=== PATIENT | male | born 2000 | race Caucasian/White ===

== ENCOUNTER 2023-08-29 19:45 | Inpatient (IN) | payer MEDICARE, MEDICAID, SELFPAY ==
[2023-08-29] VITALS (11 sets, daily range): BP systolic 117–145; BP diastolic 53–89; PULSE 100–137; RESP 18–54; TEMP 37.3; O2SAT 94–100
--- NOTE | 2023-08-29 20:00 | DI.US.S_ITS ---
PROCEDURE: US PERIPH VENOUS LOW EXTREM LT INDICATIONS: pain, swelling, redness, no injury TECHNIQUE: Real-time imaging, as well as color and pulse Doppler interrogation, were performed of the lower extremity deep veins from the inguinal ligament to the popliteal fossa, with documentation of the visualized calf veins. COMPARISON: None. FINDINGS: The common femoral, femoral, popliteal, veins are normally compressible, and free of intraluminal thrombus. Color and pulse Doppler demonstrate normal phasic intraluminal flow. There is normal augmentation response to distal compression maneuver. Calf veins not evaluated due to patient body habitus/motion. IMPRESSION: No findings of lower extremity deep venous thrombosis. Calf veins not well visualized/evaluated. Dictated by: Diego Hawthorne M.D. on 08/29/2023 at 21:24 Approved by: Diego Hawthorne M.D. on 08/29/2023 at 21:25
--- NOTE | 2023-08-29 20:00 | DI.RAD.S_ITS ---
PROCEDURE: XR CHEST 1V INDICATIONS: Shortness of breath TECHNIQUE: One view of the chest was acquired. COMPARISON: None. FINDINGS: Surgical changes and devices: None. Lungs and pleura: Low lung volumes. Minimal nonspecific bibasilar opacities. No pleural effusion or pneumothorax. Mediastinum: Cardiac silhouette is at the upper limit of normal in size. Bones and chest wall: No suspicious bony lesions. Overlying soft tissues appear unremarkable. IMPRESSION: Low lung volumes with minimal nonspecific bibasilar opacities possible hypoventilatory atelectasis aspiration or pneumonia difficult to exclude. Dictated by: Diego Hawthorne M.D. on 08/29/2023 at 21:21 Approved by: Diego Hawthorne M.D. on 08/29/2023 at 21:23
--- NOTE | 2023-08-29 20:00 | DI.RAD.S_ITS ---
PROCEDURE: XR ANKLE LT MIN 3V INDICATIONS: pain, swelling, redness, no obvious injury TECHNIQUE: 3 views of the ankle were acquired. COMPARISON: None. FINDINGS: Bones: No fractures or dislocations. Ankle mortise is normally aligned. No suspicious bony lesions. Soft tissues: No tibiotalar joint effusion. IMPRESSION: No acute osseous abnormality. If symptoms persist, follow-up radiographs and/or CT or MRI may be helpful for further evaluation. Dictated by: Diego Hawthorne M.D. on 08/29/2023 at 21:20 Approved by: Diego Hawthorne M.D. on 08/29/2023 at 21:21
--- NOTE | 2023-08-29 20:01 | ED_ITS ---
HPI - General Adult General Chief complaint: Upper Respiratory Symptoms Stated complaint: cough/drugs Time Seen by Provider: 08/29/23 19:49 Source: patient Mode of arrival: Wheelchair History of Present Illness HPI narrative: 23-year-old male daily smoker, daily use smoked methamphetamines presents with shortness of breath. He denies any fever or chills. He denies any chest pain. He is not dizzy nor weak or lightheaded. He denies any IV drug abuse. Denies nausea, vomiting or diarrhea. He states he has significant pain in his left foot and ankle but denies any known injury. He denies any history of blood clot or any chronic medical history. Related Data Allergies Allergy/AdvReac Type Severity Reaction Status Date / Time No Known Drug Allergies Allergy Verified 08/29/23 21:25 Review of Systems Review of Systems Narrative: GENERAL: See HPI HEENT: Denies sinus pain, ear pain, sore throat, difficulty swallowing, dizziness. RESPIRATORY: See HPI CARDIOVASCULAR: Denies chest pain, palpitations, orthopnea, edema, GASTROINTESTINAL: Denies nausea, vomiting, abdominal pain, diarrhea, constipation, melena. : Denies dysuria, frequency, incontinence, hematuria, urinary retention. MUSCULOSKELETAL: See HPI SKIN: See HPI NEUROLOGIC: Denies weakness, headache, numbness, change in speech, confusion, seizures, incoordination. PSYCHIATRIC: No concerning psychosocial issues. 12 point review of systems is negative except for those stated above Patient History Social History Smoking Status: Current every day smoker Smoking Status: Current every day smoker Substance Use Type: methamphetamine Exam Narrative Exam Narrative: GENERAL: [23] year old patient appears stated age. Well-developed patient, in moderate distress. Obviously in pain, unable to weightbear on left foot HEAD: Atraumatic. Normocephalic. EYES: Pupils equal round and reactive. Extraocular motions intact. No scleral icterus. No injection or drainage. ENT: Nose without bleeding, purulent drainage. Throat without erythema, tonsillar hypertrophy or exudate. Airway patent. NECK: Trachea midline. Non tender CARDIOVASCULAR: Tachycardic but regular rhythm without murmurs, gallops, or rubs. RESPIRATORY: Increased respiratory rate and effort, end expiratory wheeze throughout GASTROINTESTINAL: Abdomen soft, non-tender, nondistended. EXTREMITIES: Left foot and ankle with noted swelling, pain and tenderness, mainly along the medial malleolus, some calf swelling is noted, no redness, no pain on medial thigh. BACK: Nontender without deformity or crepitance. No flank tenderness. NEURO: AOx3. SKIN: No rash or erythema of visible areas Initial Vital Signs Initial Vital Signs: Vital Signs Temperature 99.1 F 08/29/23 19:49 Pulse Rate 137 H 08/29/23 19:49 Respiratory Rate 32 H 08/29/23 19:49 Blood Pressure 145/70 H 08/29/23 19:49 Pulse Oximetry 100 08/29/23 19:49 Oxygen Delivery Method Room Air 08/29/23 19:49 Course Orders Ordered: ED Orders 08/29/23 20:00 Chest [XR chest 1V] Stat US periph venous low extrem lt Stat XR ankle LT min 3V Stat C-Reactive Protein Quant Stat COVID19 -Nasal RAPID Stat Complete Blood Count AUTO DIFF Stat Comprehensive Metabolic Panel Stat D Dimer Stat ESR [Erythrocyte Sedimentation Rate] Stat Lactate (Lactic Acid) Stat Lipase Stat Magnesium Stat NT-proBNP (BNP-Adult 18+) Stat Prothrombin Time INR Stat Troponin & CK Cardiac Panel Stat EKG-12 Lead Stat 08/29/23 20:01 RT Consult Eval and Treat NOW 08/29/23 21:19 CT angio chest PE protocol Stat 08/29/23 22:35 Ictotest Urine Stat Urine Culture Stat Urine Drug Screen, Rapid Stat Urine Microscopic Stat Sodium Chloride (Normal Saline 0.9%) 2,259 mls @ 753 mls/hr 30 ml/kg infuse over 3 hr (2259 ml) IV NOW ONE Stop: 08/30/23 01:53 Vancomycin HCl/Dextrose (Vancomycin) 2,000 mg in 400 mls @ 200 mls/hr IV NOW ONE Stop: 08/30/23 00:54 Last Admin: 08/30/23 00:13 Dose: 200 mls/hr Documented By: MARNIE Discontinued Medications Albuterol/Ipratropium (Albuterol/Ipratropium 3 Ml Ampul) 3 ml INH NOW ONE Stop: 08/29/23 20:06 Last Admin: 08/29/23 20:06 Dose: 3 ml Documented By: MADELINE Sodium Chloride (Normal Saline 0.9%) 1,000 mls @ 1,000 mls/hr IV BOLUS ONE Stop: 08/29/23 23:38 Last Admin: 08/29/23 22:44 Dose: 1,000 mls/hr Documented By: MARNIE Ceftriaxone Sodium 2,000 mg/ (Sodium Chloride) 100 mls @ 200 mls/hr IV NOW ONE Stop: 08/29/23 22:55 Last Infusion: 08/29/23 23:37 Dose: Infused Documented By: Admin: 08/29/23 23:01 Dose: 200 mls/hr Documented By: MARNIE Azithromycin 500 mg/ Dextrose 250 mls @ 250 mls/hr IV NOW ONE Stop: 08/29/23 22:55 Last Admin: 08/29/23 23:31 Dose: 250 mls/hr Documented By: MARNIE Vital Signs Vital signs: Vital Signs - 8 hr 08/29/23 19:49 08/29/23 20:06 08/29/23 20:38 Temperature 99.1 F Pulse Rate 137 H 122 H 124 H Respiratory Rate 32 H 32 H Blood Pressure 145/70 H Pulse Oximetry 100 99 95 Oxygen Delivery Method Room Air Room Air Oxygen Flow Rate 0 Fraction of Inspired Oxygen 21 08/29/23 21:00 08/29/23 21:00 08/29/23 21:39 Temperature Pulse Rate 120 H 121 H Respiratory Rate 30 H 39 H Blood Pressure 144/66 H Pulse Oximetry 97 Oxygen Delivery Method Oxygen Flow Rate Fraction of Inspired Oxygen 08/29/23 21:41 08/29/23 21:41 08/29/23 22:00 Temperature Pulse Rate 116 H 120 H Respiratory Rate 54 H 40 H Blood Pressure 133/59 L Pulse Oximetry 99 Oxygen Delivery Method Oxygen Flow Rate Fraction of Inspired Oxygen 08/29/23 22:01 08/29/23 22:01 08/29/23 22:48 Temperature Pulse Rate 121 H 100 H Respiratory Rate 43 H Blood Pressure 117/65 Pulse Oximetry 94 Oxygen Delivery Method Oxygen Flow Rate Fraction of Inspired Oxygen 08/29/23 23:01 08/29/23 23:30 08/30/23 00:13 Temperature Pulse Rate 122 H Respiratory Rate 18 18 Blood Pressure 139/89 131/53 L Pulse Oximetry 98 Oxygen Delivery Method Oxygen Flow Rate Fraction of Inspired Oxygen Medical Decision Making Lab Data 08/29/23 20:00 08/29/23 20:00 Labs: Lab Results 10/17/23 10/17/23 Range/Units 20:00 22:35 WBC 11.9 H (4.5-11.0) X10^3/uL RBC 4.27 L (4.5-5.9) X10^6/uL Hgb 12.5 L (13.5-17.5) g/dL Hct 36.2 L (41-53) % MCV 84.7 (80-100) fL MCH 29.4 (26-34) PG MCHC 34.7 (30-36) % RDW 13.8 (11.6-14.8) % Plt Count 257 (150-400) X10^3/uL Neut % (Auto) 79.1 H (50-75) % Lymph % (Auto) 10.3 L (25-40) % [place] % (Auto) 10.2 (3-14) % Eos % (Auto) 0.1 L (2-4) % Baso % (Auto) 0.3 (0-2) % Neut # (Auto) 9400 H (2237-1083) /uL Lymph # (Auto) 1200 (8622-3850) /uL [place] # (Auto) 1200 H (0-900) /uL Eos # (Auto) 0 (0-450) /uL Baso # (Auto) 0 (0-100) /uL ESR 55 H (0-15) MM/HR PT 18.1 H (10.1-12.7) SECONDS INR 1.6 H (0.9-1.3) D-Dimer 1496 H (<500) ng/ml Sodium 136 L (137-145) mmol/L Potassium 3.4 (3.4-5.1) mmol/L Chloride 102 (98-107) mmol/L Carbon Dioxide 24 (22-32) mmol/L BUN 15 (9-20) mg/dL Creatinine 1.24 (0.66-1.25) mg/dL Estimated GFR > 60 (>60) mL/min BUN/Creatinine Ratio 12.1 (6-22) Glucose 107 H (70-100) mg/dL Lactate 1.9 (0.7-2.1) mmol/L Calcium 9.2 (8.4-10.2) mg/dL Magnesium 1.7 (1.6-2.3) mg/dL Total Bilirubin 0.9 (0.2-1.3) mg/dL AST 40 (17-59) IU/L ALT 40 (<50) IU/L Alkaline Phosphatase 82 (38-126) U/L Total Creatine Kinase 382 H (55-170) U/L Troponin I < 0.012 (0.01-0.034) ng/mL C-Reactive Protein 16.7 H (<1.0) mg/dL NT-Pro-B Natriuret Pep < 20 (<125) pg/mL Total Protein 7.6 (6.3-8.2) g/dL Albumin 4.2 (3.5-5.0) g/dL Globulin 3.4 (1.7-4.1) g/dL Albumin/Globulin Ratio 1.2 (1.0-2.8) Lipase 50 (23-300) U/L Ur Bilirubin Confirm Negative (Negative) Urine RBC None seen (0-5/HPF) Urine WBC 1-5/hpf (0-5/HPF) Ur Squamous Epith Cells 1-5 /hpf (0-5/HPF) Urine Bacteria None seen (None) Ur Culture Indicated? Specimen cultured U Opiates 300ng/mL cut Negative (Negative) Ur Oxycodone Screen Negative (Negative) Urine Methadone Screen Negative (Negative) Ur Barbiturates Screen Negative (Negative) U Tricyclic Antidepress Negative (Negative) Ur Phencyclidine Scrn Negative (Negative) Ur Amphetamines Screen Positive H (Negative) U Methamphetamines Scrn Positive H (Negative) Ur MDMA Scrn (Ecstasy) Negative (Negative) U Benzodiazepines Scrn Negative (Negative) Urine Cocaine Screen Negative (Negative) U Marijuana (THC) Screen Negative (Negative) SARS-CoV-2 (PCR) Negative (Negative) Urine Dip Bedside Urine Glucose Negative Bedside Urine Bilirubin + 1 Bedside Urine Ketone +/- 5 Urine Specific [place] 1.015 Bedside Urine Occult Blood - Negative Bedside Urine pH 6 Bedside Urine Protein + 30 Bedside Urine Urobilinogen +/- 1mg Bedside Urine Nitrite - Negative Bedside Urine Leukocytes +/- 15 Esterase Point of care testing: Urine Dip Bedside Urine Glucose Negative Bedside Urine Bilirubin + 1 Bedside Urine Ketone +/- 5 Urine Specific [place] 1.015 Bedside Urine Occult Blood - Negative Bedside Urine pH 6 Bedside Urine Protein + 30 Bedside Urine Urobilinogen +/- 1mg Bedside Urine Nitrite - Negative Bedside Urine Leukocytes +/- 15 Esterase ECG Data Interpretation: [2001] EKG is sinus tach with rate 123, regular rhythm, no other ectopy, no ST elevations or depressions and free of any signs of ischemia or ectopy. No ST segmental elevation or depression. No T wave inversions MDM Narrative Medical decision making narrative: [23 year old patient presents with shortness of breath, cough and left ankle pain Multiple etiologies for patient's symptoms considered including, but not limited to: [Pneumonia versus pneumonitis versus pulmonary embolism versus cellulitis versus DVT versus other] Prior Charts reviewed in our EMR Primary Historian: patient Labs reviewed and interpreted by myself: Slight leukocytosis and relative left shift, no significant anemia, D-dimer 1496, lactate 1.9, primary electrolytes, renal function within normal Imaging reviewed: Chest x-ray with bibasilar opacities, left ankle x-ray without acute osseous abnormality, left lower extremity peripheral vascular ultrasound without evidence of DVT, CT angiogram shows no large central pulmonary embolism but does demonstrate bilateral pulmonary infiltrates 23-year-old male with morbid obesity and history of smoking and daily methamphetamine use presents tachycardic and short of breath, physical exam and imaging convincing for bilateral pneumonia and left lower extremity infectious process. Patient requires hospitalization for ongoing treatment and stabilization of his condition Dr. Carter happy to accept on his service Discharge Plan Departure Patient Disposition: Admitted As Inpatient Clinical Impression: Bilateral pneumonia, Sepsis, Cellulitis of left leg
[2023-08-29] MEDS: ALBUTEROL/IPRATROPIUM 3 ML AMPUL INH (20:06)
[2023-08-29 20:37] LABS: COVID19 -Nasal RAPID Negative (Negative)
[2023-08-29 20:40] LABS: Add Manual Diff / Slide Review NO; Basophils Absolute Auto 0 /uL (0-100); Basophils Percent Auto 0.3 % (0-2); Eosinophils Absolute Auto 0 /uL (0-450); Eosinophils Percent Auto 0.1 % (2-4); Hematocrit 36.2 % (41-53); Hemoglobin 12.5 g/dL (13.5-17.5); Lymphocytes Absolute Auto 1200 /uL (1100-4500); Lymphocytes Percent Auto 10.3 % (25-40); Mean Corpuscular HGB Conc 34.7 % (30-36); Mean Corpuscular Hemoglobin 29.4 PG (26-34); Mean Corpuscular Volume 84.7 fL (80-100); Monocytes Absolute Auto 1200 /uL (0-900); Monocytes Percent Auto 10.2 % (3-14); Neutrophils Absolute Auto 9400 /uL (1500-7000); Neutrophils Percent Auto 79.1 % (50-75); Platelet Count 257 X10^3/uL (150-400); Red Blood Cell Count 4.27 X10^6/uL (4.5-5.9); Red Cell Distribution Width 13.8 % (11.6-14.8); White Blood Cell Count 11.9 X10^3/uL (4.5-11.0)
[2023-08-29 20:41] LABS: Lactate (Lactic Acid) 1.9 mmol/L (0.7-2.1)
[2023-08-29 20:45] LABS: Alanine Aminotransferase 40 IU/L (<50); Albumin 4.2 g/dL (3.5-5.0); Albumin Globulin Ratio 1.2 (1.0-2.8); Alkaline Phosphatase 82 U/L (38-126); Aspartate Aminotransferase 40 IU/L (17-59); BUN Creatinine Ratio 12.1 (6-22); Bilirubin Total 0.9 mg/dL (0.2-1.3); Blood Urea Nitrogen 15 mg/dL (9-20); Calcium 9.2 mg/dL (8.4-10.2); Carbon Dioxide 24 mmol/L (22-32); Chloride 102 mmol/L (98-107); Creatine Kinase 382 U/L (55-170); Estimated Glomerular Filt Rate > 60 mL/min (>60); Globulin 3.4 g/dL (1.7-4.1); Glucose 107 mg/dL (70-100); HEMOLYSIS < 15 (0-50); Lipase 50 U/L (23-300); Magnesium 1.7 mg/dL (1.6-2.3); Potassium 3.4 mmol/L (3.4-5.1); Sodium 136 mmol/L (137-145); Total Protein 7.6 g/dL (6.3-8.2)
[2023-08-29 20:54] LABS: NT-proBNP (BNP-Adult 18+) < 20 pg/mL (<125); Troponin I < 0.012 ng/mL (0.01-0.034)
[2023-08-29 21:00] LABS: C-Reactive Protein Quant 16.7 mg/dL (<1.0)
[2023-08-29 21:11] LABS: INR 1.6 (0.9-1.3); Prothrombin Time 18.1 SECONDS (10.1-12.7)
[2023-08-29 21:13] LABS: D Dimer 1496 ng/ml (<500)
--- NOTE | 2023-08-29 21:19 | DI.CT.S_ITS ---
PROCEDURE: CT ANGIO CHEST PE PROTOCOL INDICATIONS: Shortness of breath, tachycardia, critical Dimer TECHNIQUE: After the administration of intravenous contrast, 2 mm thick sections acquired from the pulmonary apices to the posterior costophrenic angles. 3-dimensional maximum intensity projection (MIP) coronal and sagittal reformats were then acquired through the thorax. For radiation dose reduction, the following was used: automated exposure control, adjustment of mA and/or kV according to patient size. COMPARISON: None. FINDINGS: Image quality: Suboptimal due to motion and patient body habitus. Pulmonary arteries: No large or central pulmonary embolism identified. The main pulmonary artery is enlarged measuring 3.4 cm. Lungs and pleura: No pleural effusion or pneumothorax. Patchy ground-glass/consolidative opacities present in both lungs most pronounced at the lung bases Mediastinum: No pericardial effusion. Thoracic aorta is normal in caliber and enhancement. Esophagus is normal in caliber Bones and chest wall: No suspicious bony lesions. Ribs and thoracic spine appear intact throughout. No supraclavicular adenopathy. Left axillary adenopathy and prominent right axillary lymph nodes Abdomen: Visualized upper abdominal solid organs appear normal in the early arterial phase of enhancement. IMPRESSION: Suboptimal evaluation due to technical factors as above. No large or central pulmonary embolism identified. Patchy ground-glass/consolidative opacities present in both lungs, likely infectious/inflammatory correlation for pneumonia may be helpful Enlargement of the main pulmonary artery, a finding which can be seen in the setting of pulmonary hypertension. Nonspecific left axillary adenopathy and prominent right axillary lymph nodes present clinical correlation recommended Dictated by: Diego Hawthorne M.D. on 08/29/2023 at 22:34 Approved by: Diego Hawthorne M.D. on 08/29/2023 at 22:40
[2023-08-29 21:26] LABS: Erythrocyte Sedimentation Rate 55 MM/HR (0-15)
[2023-08-29] MEDS: SODIUM CHLORIDE 0.9% 1,000 ML 1000 ML IV (22:44)
[2023-08-29 22:50] LABS: Ictotest Urine Negative (Negative)
[2023-08-29 22:51] LABS: Bacteria Urine None Seen; Culture Indicated Urine Specimen Cultured; RBC Urine None Seen (0-5/HPF); Squamous Epithelial Cell Urine 1-5 /HPF (0-5/HPF); WBC Urine 1-5/HPF (0-5/HPF)
[2023-08-29 22:52] LABS: UR Morphine/Opiate cutoff 300 Negative (Negative); Ur Creatinine Normal (Normal); Ur Specific Gravity Normal (Normal); Urine Amphetamines Positive (Negative); Urine Barbiturates Negative (Negative); Urine Benzodiazepines Negative (Negative); Urine Cocaine Negative (Negative); Urine MDMA Negative (Negative); Urine Methadone Negative (Negative); Urine Methamphetamines Positive (Negative); Urine Oxycodone Negative (Negative); Urine Phencyclidine Negative (Negative); Urine Tetrahydrocannabinol Negative (Negative); Urine Tricyclic Antidepressant Negative (Negative); Urine pH Normal (Normal)
[2023-08-29] MEDS: cefTRIAXone 2,000 MG in SODIUM CHLORIDE 0.9% 100 ML 200 MG IV (23:01)
[2023-08-29] MEDS: AZITHROMYCIN 500 MG in DEXTROSE 5% IN WATER 250 ML 250 MG IV (23:31)
--- NOTE | 2023-08-29 23:42 | PC.NURSE ---
pt very restless, continues moving about in the bed, pulling the bp cuff off and pulse ox, pt also will not keep his arm straight for the IVs to infuse, pt constantly bending his arm and has been reminded several times to keep his arm straight so he can received the medication
[2023-08-30] VITALS (15 sets, daily range): BP systolic 105–137; BP diastolic 52–76; PULSE 92–122; RESP 18–24; TEMP 36.1–38.1; O2SAT 95–100; BMI 49.1
[2023-08-30] MEDS: VANCOMYCIN 2,000 MG/400 ML PIGGYBACK 200 MG IV (00:13)
--- NOTE | 2023-08-30 00:27 | PC.NURSE ---
PT was told multiple times to straighten his arm to allow Iv antibiotics in. PT stated I don't have to Paused antibiotics at this time due to patient refusing medications.
[2023-08-30] MEDS: ACETAMINOPHEN 325 MG TABLET 650 MG PO ×3 (01:19→13:39)
--- NOTE | 2023-08-30 01:53 | P.HP_ITS ---
History of Present Illness History of Present Illness Date Patient Seen: 08/30/23 Time Patient Seen: 01:53 Chief complaint: cough/drugs Narrative: The pt is a 23 yo morbidly obese male who has a hx of chronic Bipolar, depression and uses Methamphetamines on a daily bases who is also homeless with a cough and a sinus infection for the past 2 weeks. Diego also states that he has a cough of yellow sputum and dsypnea that has been worsening. The pt reports that he has been at 4-5 different drug rehab facilities and in patient psychiatry facilities in the past. There has been no N/V/D, fevers, chills, hemoptysis, but he does c/o left ankle pain . [facility] Social History household members: family Smoking Status: Current every day smoker alcohol intake: current Meds Home Medications and Allergies Allergies Allergy/AdvReac Type Severity Reaction Status Date / Time No Known Drug Allergies Allergy Verified 08/29/23 21:25 Exam Vital Signs (past 8 hours): - 08/29/23 19:49 08/29/23 20:06 08/29/23 20:38 Temperature 99.1 F Pulse Rate 137 H 122 H 124 H Respiratory Rate 32 H 32 H Blood Pressure 145/70 H Pulse Oximetry 100 99 95 Oxygen Delivery Method Room Air Room Air Oxygen Flow Rate 0 Fraction of Inspired Oxygen 21 08/29/23 21:00 08/29/23 21:00 08/29/23 21:39 Temperature Pulse Rate 120 H 121 H Respiratory Rate 30 H 39 H Blood Pressure 144/66 H Pulse Oximetry 97 Oxygen Delivery Method Oxygen Flow Rate Fraction of Inspired Oxygen 08/29/23 21:41 08/29/23 21:41 08/29/23 22:00 Temperature Pulse Rate 116 H 120 H Respiratory Rate 54 H 40 H Blood Pressure 133/59 L Pulse Oximetry 99 Oxygen Delivery Method Oxygen Flow Rate Fraction of Inspired Oxygen 08/29/23 22:01 08/29/23 22:01 08/29/23 22:48 Temperature Pulse Rate 121 H 100 H Respiratory Rate 43 H Blood Pressure 117/65 Pulse Oximetry 94 Oxygen Delivery Method Oxygen Flow Rate Fraction of Inspired Oxygen 08/29/23 23:01 08/29/23 23:30 08/30/23 00:13 Temperature Pulse Rate 122 H Respiratory Rate 18 18 Blood Pressure 139/89 131/53 L Pulse Oximetry 98 Oxygen Delivery Method Oxygen Flow Rate Fraction of Inspired Oxygen 08/30/23 00:15 08/30/23 00:15 08/30/23 01:17 Temperature 100.1 F H Pulse Rate 121 H 112 H Respiratory Rate 24 Blood Pressure 105/61 126/55 L Pulse Oximetry 97 98 Oxygen Delivery Method Oxygen Flow Rate 0 Fraction of Inspired Oxygen 08/30/23 01:19 Temperature 100.5 F H Pulse Rate Respiratory Rate Blood Pressure Pulse Oximetry Oxygen Delivery Method Oxygen Flow Rate Fraction of Inspired Oxygen Fraction of Inspired Oxygen 21 SaO2/FiO2 Ratio 471 Oxygen Delivery Method Room Air Oxygen Flow Rate 0 Narrative Exam Narrative: Confused, answering questions though without dypnea, Resp Auscultation: breath sounds absent and rales Cardio Rate: regular rate Rhythm: regular rhythm GI Inspection: large pannus Auscultation: normal bowel sounds Skin Other: multiple small skin lesion on upper trunk and face Objective Labs 08/29/23 20:00 08/29/23 20:00 Labs: Laboratory Results - last 24 hr 08/29/23 08/29/23 20:00 22:35 WBC 11.9 H RBC 4.27 L Hgb 12.5 L Hct 36.2 L MCV 84.7 MCH 29.4 MCHC 34.7 RDW 13.8 Plt Count 257 Neut % (Auto) 79.1 H Lymph % (Auto) 10.3 L [place] % (Auto) 10.2 Eos % (Auto) 0.1 L Baso % (Auto) 0.3 Neut # (Auto) 9400 H Lymph # (Auto) 1200 [place] # (Auto) 1200 H Eos # (Auto) 0 Baso # (Auto) 0 ESR 55 H PT 18.1 H INR 1.6 H D-Dimer 1496 H Sodium 136 L Potassium 3.4 Chloride 102 Carbon Dioxide 24 BUN 15 Creatinine 1.24 Estimated GFR > 60 BUN/Creatinine Ratio 12.1 Glucose 107 H Lactate 1.9 Calcium 9.2 Magnesium 1.7 Total Bilirubin 0.9 AST 40 ALT 40 Alkaline Phosphatase 82 Total Creatine Kinase 382 H Troponin I < 0.012 C-Reactive Protein 16.7 H NT-Pro-B Natriuret Pep < 20 Total Protein 7.6 Albumin 4.2 Globulin 3.4 Albumin/Globulin Ratio 1.2 Lipase 50 Ur Bilirubin Confirm Negative Urine RBC None seen Urine WBC 1-5/hpf Ur Squamous Epith Cells 1-5 /hpf Urine Bacteria None seen Ur Culture Indicated? Specimen cultured U Opiates 300ng/mL cut Negative Ur Oxycodone Screen Negative Urine Methadone Screen Negative Ur Barbiturates Screen Negative U Tricyclic Antidepress Negative Ur Phencyclidine Scrn Negative Ur Amphetamines Screen Positive H U Methamphetamines Scrn Positive H Ur MDMA Scrn (Ecstasy) Negative U Benzodiazepines Scrn Negative Urine Cocaine Screen Negative U Marijuana (THC) Screen Negative SARS-CoV-2 (PCR) Negative Assessment & Plan Assessment and plan (1) Sepsis: Status: Acute (2) Bilateral pneumonia: Status: Acute Plan Will admit the pt for pneumonia bilat, will start on rocephin and azithromycin, breathing tx prn, antiemetics, tylenol prn, CT chest reviewed by myself which showed bilat diffuse infiltrates. The pt is positive for meth, ativan ordered prn for possible withdrawl, the pt reports that he has chronic depression. repeat labs in am, currently on RA, monitor
--- NOTE | 2023-08-30 03:31 | PC.ADMIT ---
Addendum entered by Mildred Morrell R.N. 08/30/23 07:39: ghada Latham RN, informed that home med list had not yet been updated. Original Note: [address] [place] Admission Note: The patient,Diego Ferrer,23 y/o, was given written information regarding hospital policies, unit procedures and contact persons. Patient's smoking status: Current every day smoker. Vital Signs - 8 hr 08/29/23 19:49 08/29/23 20:06 08/29/23 20:38 Temperature 99.1 F Pulse Rate 137 H 122 H 124 H Respiratory Rate 32 H 32 H Blood Pressure 145/70 H Pulse Oximetry 100 99 95 Oxygen Delivery Method Room Air Room Air Oxygen Flow Rate 0 Fraction of Inspired Oxygen 21 08/29/23 21:00 08/29/23 21:00 08/29/23 21:39 Temperature Pulse Rate 120 H 121 H Respiratory Rate 30 H 39 H Blood Pressure 144/66 H Pulse Oximetry 97 Oxygen Delivery Method Oxygen Flow Rate Fraction of Inspired Oxygen 08/29/23 21:41 08/29/23 21:41 08/29/23 22:00 Temperature Pulse Rate 116 H 120 H Respiratory Rate 54 H 40 H Blood Pressure 133/59 L Pulse Oximetry 99 Oxygen Delivery Method Oxygen Flow Rate Fraction of Inspired Oxygen 08/29/23 22:01 08/29/23 22:01 08/29/23 22:48 Temperature Pulse Rate 121 H 100 H Respiratory Rate 43 H Blood Pressure 117/65 Pulse Oximetry 94 Oxygen Delivery Method Oxygen Flow Rate Fraction of Inspired Oxygen 08/29/23 23:01 08/29/23 23:30 08/30/23 00:13 Temperature Pulse Rate 122 H Respiratory Rate 18 18 Blood Pressure 139/89 131/53 L Pulse Oximetry 98 Oxygen Delivery Method Oxygen Flow Rate Fraction of Inspired Oxygen 08/30/23 00:15 08/30/23 00:15 08/30/23 01:17 Temperature 100.1 F H Pulse Rate 121 H 112 H Respiratory Rate 24 Blood Pressure 105/61 126/55 L Pulse Oximetry 97 98 Oxygen Delivery Method Oxygen Flow Rate 0 Fraction of Inspired Oxygen 08/30/23 01:19 08/30/23 02:15 Temperature 100.5 F H 99 F Pulse Rate Respiratory Rate Blood Pressure Pulse Oximetry Oxygen Delivery Method Oxygen Flow Rate Fraction of Inspired Oxygen Patient admitted to room 206 from ER per stretcher and transferred himself into the bed. Is drowsy and needed to be verbally awakened multiple times during admission assessment. His responses were, at times, contradictory. He initially told this RN that he lived with his mother and was bed bound, but told MD he was homeless and then reported he is ambulatory. Stated he came to the ER because he wants to get off drugs. Breath sounds CTA with RA sat of 93% but reports he intermittently coughs up yellow/green sputum and is SOB when coughing. HRR but tachy at 115 bpm. Febrile on admission with temp of 100.5 but decreased to 99 after being administered tylenol. Endorses mild feeling of nausea but did not need antiemetics. BT present and abdomen is soft but obese. Has reddened areas in abdominal fold on right side and bilateral groins; skin is moist. Denied dysuria; voided 600cc in ER. Is able to move himself in bed. Gait not assessed at this time. Reports chronic numbness of left foot. Has erythema in left LE with dark reddened area over left medial malleolus; MD viewed leg via web camera. Has multiple scabbed areas on face, chest, upper arms and several on back as well. Has larger scabbed area on right ear lobe. Denied pain. Fall risk score is moderate and bed alarm is activated. Talked about feeling of not wanting to live but suicide risk was low per admission assessment. Discussed suicide risk with Dr. Carter and he agreed that patient is at low risk. Patient reports being developmentally disabled and wants to quit using drugs and wanting mental health counseling. CIWA score was 2. Bilateral calf SCD's were applied. Dr. Carter spoke with patient re: plan of care via webex camera. Patient oriented to call light and bed controls.
[2023-08-30] MEDS: SODIUM CHLORIDE 0.9% 1,000 ML 100 ML IV (05:02)
[2023-08-30 05:41] LABS: Add Manual Diff / Slide Review NO; Basophils Absolute Auto 0 /uL (0-100); Basophils Percent Auto 0.3 % (0-2); Eosinophils Absolute Auto 0 /uL (0-450); Eosinophils Percent Auto 0.1 % (2-4); Hematocrit 36.6 % (41-53); Hemoglobin 12.5 g/dL (13.5-17.5); Lymphocytes Absolute Auto 2000 /uL (1100-4500); Lymphocytes Percent Auto 17.5 % (25-40); Mean Corpuscular HGB Conc 34.2 % (30-36); Mean Corpuscular Hemoglobin 29.2 PG (26-34); Mean Corpuscular Volume 85.4 fL (80-100); Monocytes Absolute Auto 1500 /uL (0-900); Monocytes Percent Auto 13.3 % (3-14); Neutrophils Absolute Auto 7900 /uL (1500-7000); Neutrophils Percent Auto 68.8 % (50-75); Platelet Count 236 X10^3/uL (150-400); Red Blood Cell Count 4.29 X10^6/uL (4.5-5.9); White Blood Cell Count 11.5 X10^3/uL (4.5-11.0)
[2023-08-30 05:51] LABS: BUN Creatinine Ratio 12.6 (6-22); Blood Urea Nitrogen 14 mg/dL (9-20); Calcium 8.8 mg/dL (8.4-10.2); Carbon Dioxide 23 mmol/L (22-32); Chloride 103 mmol/L (98-107); Estimated Glomerular Filt Rate > 60 mL/min (>60); Glucose 98 mg/dL (70-100); HEMOLYSIS 21 (0-50); Potassium 3.5 mmol/L (3.4-5.1); Sodium 137 mmol/L (137-145)
[2023-08-30] MEDS: PANTOPRAZOLE DR 20 MG TABLET PO (06:24)
[2023-08-30] MEDS: ENOXAPARIN 40 MG/0.4 ML SYRINGE SUBCUT ×2 (09:56→20:36)
[2023-08-30] MEDS: POTASSIUM CHLORIDE 20 MEQ TAB 40 MEQ PO (09:56)
--- NOTE | 2023-08-30 11:15 | PC.NURSE ---
Day shift: Pt sleeping this AM. Does awaken to voice. Calm and cooperative with care. VS WNL. RA 96%. Call light in reach. Door to room open for safety. Bed alarm is on.
--- NOTE | 2023-08-30 13:53 | DI.CT.S_ITS ---
PROCEDURE: CT LE LT W CON INDICATIONS: ankle pain, bruising - left TECHNIQUE: Noncontrast 1-1.5 mm axial sections acquired from above the tibiotalar joint to the bottom of the calcaneus, with coronal and sagittal reformats. COMPARISON: None. FINDINGS: Image quality: Excellent. Bones: Alignment of lower leg is anatomic. No acute ankle fracture or dislocation. No suspicious bony lesions. Ankle mortise is congruent. No gross osteochondral injuries of talar dome. Soft tissues: Mild soft tissue swelling and edema around ankle joint is seen extending to dorsal aspect of midfoot and forefoot.. There is no drainable fluid collection. No abnormal intramuscular enhancement. Small tibiotalar joint effusion is seen, no calcified intra-articular loose bodies. No abnormal soft tissue calcifications. IMPRESSION: 1. Mild soft tissue swelling and edema around distal lower leg and ankle joint extending to dorsal aspect of midfoot and forefoot. No discrete drainable fluid collection. No enhancing soft tissue mass is seen. 2. No ankle fracture or dislocation. No suspicious bony lesions. No gross osteochondral injuries of talar dome. 3. No full-thickness tendon rupture. Dictated by: Jer Stringer M.D. on 08/30/2023 at 14:37 Approved by: Jer Stringer M.D. on 08/30/2023 at 15:04
[2023-08-30] MEDS: buPROPion XL 150 MG TAB PO (14:32)
[2023-08-30] MEDS: OLANZapine 2.5 MG TABLET 10 MG PO ×2 (14:33→20:35)
[2023-08-30] MEDS: VANCOMYCIN 1,500 MG/300 ML PIGGYBACK 200 MG IV (14:37)
--- NOTE | 2023-08-30 15:52 | CM.DANOTE ---
Initial DCP Assessment Note Patient is a 23 yo M, currently homeless, daily meth use, arrives with cough and admitted for management of bilateral pneumonia. Call received from patient's mom Molly Ferrer P [phone], lengthy report from mom as this HISTOLOGY SPECIALIST not able to provide information about patient but able to receive information. Mom reviews multiple concerns about patient, reports he is developmentally delayed, multiple MH diagnosis, currently using meth and has been since Jun 2023. Note with more detailed information to follow. Met w/patient this afternoon, briefly. Patient states he wants to be sober. Explained that this HISTOLOGY SPECIALIST had heard from his mom, patient states everything she said I'm sure is true. patient gives this HISTOLOGY SPECIALIST permission to speak w/mom Molly. Explained HISTOLOGY SPECIALIST will return to patient's bedside tomorrow to complete a full and thorough assessment and patient stated understanding. NEL Fulton Discharge Planning/Care Management CM Discharge Assessment Start: 08/30/23 15:48 Freq: Status: Active Protocol: Document 08/30/23 15:48 LEONID (Rec: 08/30/23 15:51 [id number]) Discharge Planning Assessment Assigned Assembler [employer] NEL López DPOA/Assigned Designee Name Molly Ferrer, mother Contact Information [phone] Advance Directives? No Advance Directives on File No History Provided By Patient,Family Member Prior Living Arrangements Homeless Type of transporation used prior to Relies on Others admit Independent with ADL's Yes Is patient alert and oriented? Yes Patient/Family Preference Drug/Alcohol Rehab Barriers to Discharge No Comment Patient is interested in sobriety. Patient may need to discharge to a care home or a family home while waiting for an inpatient OLGA treatment opportunity. Outpatient treatment can be considered. Access to services may be challenging. Discharge Plan Homeless Nursing Home Transportation Arrangement Likely taxi voucher vs [facility] transport if patient has this benefit.
--- NOTE | 2023-08-30 17:50 | P.HP_ITS ---
History of Present Illness History of Present Illness Date Patient Seen: 08/30/23 Time Patient Seen: 08:00 Chief complaint: cough/drugs Narrative: Mr. Ferrer is a 23M with [facility] morbidly obese male who has a hx of chronic Bipolar, depression and uses Methamphetamines on a daily bases who is also homeless with a cough and a sinus infection for the past 2 weeks. He states he has a cough of yellow sputum and dsypnea that has been worsening. The pt reports that he has been at 4-5 different drug rehab facilities and in patient psychiatry facilities in the past. He says his ankle pain is quite bad, but he has not had any trauma. He thinks he might be withdrawing from meth as he feels awful. [facility] Social History Smoking Status: Current every day smoker alcohol intake: current Meds Home Medications and Allergies Home Medications Medication Instructions Recorded Confirmed Type bupropion HCl 150 mg 24 hr tablet, 150 mg PO DAILY 08/30/23 08/30/23 History extended release clonidine HCl 0.1 mg tablet 0.2 mg PO ONCE PM 08/30/23 08/30/23 History olanzapine 10 mg tablet 10 mg PO BID 08/30/23 08/30/23 History Allergies Allergy/AdvReac Type Severity Reaction Status Date / Time Penicillins Allergy Verified 08/30/23 07:39 Review of Systems Review of Systems Narrative: 14 systems reviewed and negative aside from what is noted in HPI Exam Vital Signs (past 8 hours): - 08/30/23 09:57 08/30/23 11:00 08/30/23 11:58 Temperature 98.6 F Pulse Rate 92 H Respiratory Rate 24 Blood Pressure 137/76 Pulse Oximetry 96 99 Oxygen Delivery Method Room Air Room Air Oxygen Flow Rate 0 08/30/23 14:28 08/30/23 15:00 08/30/23 16:30 Temperature 100.6 F H Pulse Rate 103 H Respiratory Rate 22 Blood Pressure 118/52 L Pulse Oximetry 95 100 95 Oxygen Delivery Method Room Air Room Air Oxygen Flow Rate 0 08/30/23 17:20 Temperature Pulse Rate Respiratory Rate Blood Pressure Pulse Oximetry 96 Oxygen Delivery Method Room Air Oxygen Flow Rate Fraction of Inspired Oxygen 21 SaO2/FiO2 Ratio 471 Oxygen Delivery Method Room Air Oxygen Flow Rate 0 Narrative Exam Narrative: GEN: ill appearing, diaphoretic CV: tachycardic PULM: coarse rhonchi bilaterally ABD: soft, nontender EXT: bilateral leg swelling, ecchymosis of left ankle SKIN: excoriated scattered lesions Objective Labs 08/30/23 05:30 08/30/23 05:30 Labs: Laboratory Results - last 24 hr 08/29/23 08/29/23 08/30/23 20:00 22:35 05:30 WBC 11.9 H 11.5 H RBC 4.27 L 4.29 L Hgb 12.5 L 12.5 L Hct 36.2 L 36.6 L MCV 84.7 85.4 MCH 29.4 29.2 MCHC 34.7 34.2 RDW 13.8 14.0 Plt Count 257 236 Neut % (Auto) 79.1 H 68.8 Lymph % (Auto) 10.3 L 17.5 L Swisher % (Auto) 10.2 13.3 Eos % (Auto) 0.1 L 0.1 L Baso % (Auto) 0.3 0.3 Neut # (Auto) 9400 H 7900 H Lymph # (Auto) 1200 2000 Swisher # (Auto) 1200 H 1500 H Eos # (Auto) 0 0 Baso # (Auto) 0 0 ESR 55 H PT 18.1 H INR 1.6 H D-Dimer 1496 H Sodium 136 L 137 Potassium 3.4 3.5 Chloride 102 103 Carbon Dioxide 24 23 BUN 15 14 Creatinine 1.24 1.11 Estimated GFR > 60 > 60 BUN/Creatinine Ratio 12.1 12.6 Glucose 107 H 98 Lactate 1.9 Calcium 9.2 8.8 Magnesium 1.7 Total Bilirubin 0.9 AST 40 ALT 40 Alkaline Phosphatase 82 Total Creatine Kinase 382 H Troponin I < 0.012 C-Reactive Protein 16.7 H NT-Pro-B Natriuret Pep < 20 Total Protein 7.6 Albumin 4.2 Globulin 3.4 Albumin/Globulin Ratio 1.2 Lipase 50 Ur Bilirubin Confirm Negative Urine RBC None seen Urine WBC 1-5/hpf Ur Squamous Epith Cells 1-5 /hpf Urine Bacteria None seen Ur Culture Indicated? Specimen cultured U Opiates 300ng/mL cut Negative Ur Oxycodone Screen Negative Urine Methadone Screen Negative Ur Barbiturates Screen Negative U Tricyclic Antidepress Negative Ur Phencyclidine Scrn Negative Ur Amphetamines Screen Positive H U Methamphetamines Scrn Positive H Ur MDMA Scrn (Ecstasy) Negative U Benzodiazepines Scrn Negative Urine Cocaine Screen Negative U Marijuana (THC) Screen Negative SARS-CoV-2 (PCR) Negative Assessment & Plan Assessment & Plan narrative: 1. Acute respiratory distress from pneumonia -suspect pneumonia is bacterial etiology -for now given drug use and homeless will treat broadly with vanco, ceftriaxone, azithro -follow up cultures -mrsa swab ordered -consider meth induced lung injury if not improving with antibiotics 2. Left leg cellulitis -imaging shows soft tissue swelling most consistent with antibiotics -shows no further injury -antibiotics as above 3. Meth abuse and dependence -SW consulted I have discussed plan with patient and obtained history from him. I have discussed plan of care with bedside nurse. I have reviewed labs, imaging. CODE: Full Proxy: unknown
[2023-08-30] MEDS: AZITHROMYCIN 250 MG TABLET PO (20:35)
[2023-08-30] MEDS: cloNIDine 0.1 MG TABLET 0.2 MG PO (20:36)
[2023-08-30] MEDS: SENNOSIDES 8.6 MG TABLET 17.2 MG PO (20:36)
[2023-08-30] MEDS: SODIUM CHLORIDE 0.9% FLUSH 10 ML IV ×2 (20:37→23:07)
[2023-08-30 22:25] LABS: MRSA (Nasal) PCR Not Detected (Not Detect)
[2023-08-30] MEDS: cefTRIAXone 1,000 MG in SODIUM CHLORIDE 0.9% 100 ML 200 MG IV (23:06)
--- NOTE | 2023-08-30 23:33 | PC.NURSE ---
Patient is mostly sleeping needing both verbal and touch stimulation to stay awake to answer questions. Oriented to self, birthdate, age, place and situation but not date/time. Breath sounds CTA with RA sat of 97%; intermittent non-productive cough noted. HRR. Denied nausea. BT present and abdomen is soft, obese. Is voiding using either urinal or on toilet; states he has some burning at times when urinating. Is able to turn himself in bed. When out of bed is provided SBA for safety. Agreeable to having bilateral calf SCD's put on at time of assessment. New scratches noted on anterior left lower leg and reddened area on anterior aspect of left foot just proximal to toes. Chronic numbness of left foot. Stated pain was 7/10 but declined pain medication. Afebrile tonight. Fall risk score is moderate and bed alarm is activated.
[2023-08-31] VITALS (9 sets, daily range): BP systolic 105–123; BP diastolic 50–68; PULSE 68–83; RESP 16–20; TEMP 36.1–37.7; O2SAT 94–99
[2023-08-31] MEDS: IBUPROFEN 600 MG TABLET PO ×2 (01:55→17:44)
[2023-08-31] MEDS: VANCOMYCIN 1,500 MG/300 ML PIGGYBACK 200 MG IV (03:03)
[2023-08-31] MEDS: SODIUM CHLORIDE 0.9% FLUSH 10 ML IV ×2 (03:03→09:28)
--- NOTE | 2023-08-31 05:19 | CM.DPNOTE ---
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 Patient has been found mentally incompetent many times, mom has not sought DPOA or guardianship which she states she is regretful of currently. Mom lives in [place] w/her who is a police or patrol park officer, her aging parents and her two daughters, 12 and 18 yo. Mom relays an extensive hx, explains patient has been to [facility] 5 times in the last two months and has been doing a lot of meth. Patient is not welcome in mom's home r/t drug use and labile mood. Patient had been on DD services in [place], where he grew up, until he turned 16yo and mom wanted residential services which were not available in [place]. Mom moved 18 yo up with his Dad and had arranged residential services in [place] which did not work out. After that time, patient was on his own without services and began to travel, ending up in [place] where he was on drugs, detained and hospitalized for 4 months. Mom says he has always been drawn to homeless people and that patient has struggled with housing instability and meth use since leaving [place]. Mom tearful, says that patient is high functioning when not on meth, can hold down a job, has learned a lot of life skills and can retain information. Patient can be impulsive with poor insight and judgment and so is very vulnerable, can be taken advantage of easily. Patient has threatened suicide numerous times, no prior attempt known. Mom states fear that patient will kill himself and that, within the last month, patient has threatened to slit his throat, shoot himself in the head and end it all. DCR has responded to [facility] per mom and patient has not been detainable. Patient has a MH provider, Dr Ashlee Ibrahim, educational psychology teacher at [employer] P [phone] Mom reviews numerous steps she has taken to try to keep patient safe and stable. Discussed: -PACT -[employer] (for information see https://www.[facility].[place].gov/assets/xnwq-gg-nrm-cost/ljytg-jtr-tanv-sheet.pdf) -Voluntary vs Involuntary -DD services, mom applying and trying to get patient approved for LTC -[facility] psychologist social, Meaghan Sheridan [phone]- mom has been seeking help from Meaghan - [facility], mom says she has sought free cancel re guardianship but the volume of calls and need is too high -[facility] guardianship menhaden vessel pilot program, mom already has researched this -[facility] There is not much that this SCREEN AND CYCLONE REPAIRER could suggest that mom had not already heard of or researched, mom knowledgeable and sounds desperate to keep her son alive and safe. Discussed the difficulties in access, discussed difficulties in keeping patient stable in an unsecured, unsupervised environment, provided listening support and validation. Not discussed- how difficult it can be to secure inpatient MH treatment for someone with DD/TBI. Dual diagnosis or inpatient drug treatment may be easier if patient is agreeable. Recommend bedside assessment with patient, discuss goals and discharge options, assess for safety. NEL Fulton
[2023-08-31] MEDS: PANTOPRAZOLE DR 20 MG TABLET PO (05:57)
[2023-08-31 07:08] LABS: Magnesium 2.1 mg/dL (1.6-2.3)
[2023-08-31 07:09] LABS: BUN Creatinine Ratio 17.7 (6-22); Blood Urea Nitrogen 17 mg/dL (9-20); Calcium 8.9 mg/dL (8.4-10.2); Carbon Dioxide 24 mmol/L (22-32); Chloride 108 mmol/L (98-107); Estimated Glomerular Filt Rate > 60 mL/min (>60); Glucose 111 mg/dL (70-100); HEMOLYSIS < 15 (0-50); Potassium 3.5 mmol/L (3.4-5.1); Sodium 139 mmol/L (137-145)
[2023-08-31] MEDS: OLANZapine 2.5 MG TABLET 10 MG PO ×2 (09:28→21:50)
[2023-08-31] MEDS: POTASSIUM CHLORIDE 20 MEQ TAB 40 MEQ PO (09:28)
[2023-08-31] MEDS: buPROPion XL 150 MG TAB PO (09:28)
--- NOTE | 2023-08-31 10:31 | PM.PN.1 ---
Subjective Subjective Interval history: Breathing a little better, cough persists. No nausea or vomiting. Exam Vital Signs (past 8 hours): - 08/31/23 03:00 08/31/23 03:00 08/31/23 08:00 Temperature 97.6 F 97.0 F L Pulse Rate 83 75 Respiratory Rate 20 16 Blood Pressure 114/58 L 123/68 Pulse Oximetry 94 94 99 Oxygen Delivery Method Room Air Oxygen Flow Rate 0 0 0 08/31/23 09:13 08/31/23 09:57 Temperature Pulse Rate Respiratory Rate Blood Pressure Pulse Oximetry 96 Oxygen Delivery Method Room Air Room Air Oxygen Flow Rate Fraction of Inspired Oxygen 21 SaO2/FiO2 Ratio 471 Oxygen Delivery Method Room Air Oxygen Flow Rate 0 Narrative Exam Narrative: NAD Lungs clear with normal effort CV RRR without M/G/R Abdomen Soft, NT/ND No rash No leg edema Objective Labs 08/30/23 05:30 08/31/23 06:30 Labs: Laboratory Results - last 24 hr 08/30/23 08/31/23 21:02 06:30 Sodium 139 Potassium 3.5 Chloride 108 H Carbon Dioxide 24 BUN 17 Creatinine 0.96 Estimated GFR > 60 BUN/Creatinine Ratio 17.7 Glucose 111 H Calcium 8.9 Magnesium 2.1 Nasal Screen MRSA (PCR) Not detected [facility] Social History Smoking Status: Current every day smoker alcohol intake: current Assessment & Plan Assessment & Plan narrative: [place] [address] History & Physical Report Patient: Diego Ferrer MR#: [id number] : 2000 Acct:[id number] Age/Sex: 23 / M Date of Service: 08/30/23 Provider: Robert Lerma MD History of Present Illness History of Present Illness Date Patient Seen: 08/30/23 Time Patient Seen: 08:00 Chief complaint: cough/drugs Narrative: Mr. Ferrer is a 23M with H morbidly obese male who has a hx of chronic Bipolar, depression and uses Methamphetamines on a daily bases who is also homeless with a cough and a sinus infection for the past 2 weeks. He states he has a cough of yellow sputum and dsypnea that has been worsening. The pt reports that he has been at 4-5 different drug rehab facilities and in patient psychiatry facilities in the past. He says his ankle pain is quite bad, but he has not had any trauma. He thinks he might be withdrawing from meth as he feels awful. [facility] Social History Smoking Status: Current every day smoker alcohol intake: current Meds Home Medications and Allergies Home Medications Medication Instructions Recorded Confirmed Type bupropion HCl 150 mg 24 hr tablet, 150 mg PO DAILY 08/30/23 08/30/23 History extended release clonidine HCl 0.1 mg tablet 0.2 mg PO ONCE PM 08/30/23 08/30/23 History olanzapine 10 mg tablet 10 mg PO BID 08/30/23 08/30/23 History Allergies Allergy/AdvReac Type Severity Reaction Status Date / Time Penicillins Allergy Verified 08/30/23 07:39 Review of Systems Review of Systems Narrative: 14 systems reviewed and negative aside from what is noted in HPI Exam Vital Signs (past 8 hours): - 08/30/2309:57 08/30/2311:00 08/30/2311:58 Temperature 98.6 F Pulse Rate 92 H Respiratory Rate 24 Blood Pressure 137/76 Pulse Oximetry 96 99 Oxygen Delivery Method Room Air Room Air Oxygen Flow Rate 0 08/30/2314:28 08/30/2315:00 08/30/2316:30 Temperature 100.6 F H Pulse Rate 103 H Respiratory Rate 22 Blood Pressure 118/52 L Pulse Oximetry 95 100 95 Oxygen Delivery Method Room Air Room Air Oxygen Flow Rate 0 08/30/2317:20 Temperature Pulse Rate Respiratory Rate Blood Pressure Pulse Oximetry 96 Oxygen Delivery Method Room Air Oxygen Flow Rate Fraction of Inspired Oxygen 21 SaO2/FiO2 Ratio 471 Oxygen Delivery Method Room Air Oxygen Flow Rate 0 Narrative Exam Narrative: GEN: ill appearing, diaphoretic CV: tachycardic PULM: coarse rhonchi bilaterally ABD: soft, nontender EXT: bilateral leg swelling, ecchymosis of left ankle SKIN: excoriated scattered lesions Objective Labs 08/30/23 05:30 08/30/23 05:30 Labs: Laboratory Results - last 24 hr 08/29/23 08/29/23 08/30/23 20:00 22:35 05:30 WBC 11.9 H 11.5 H RBC 4.27 L 4.29 L Hgb 12.5 L 12.5 L Hct 36.2 L 36.6 L MCV 84.7 85.4 MCH 29.4 29.2 MCHC 34.7 34.2 RDW 13.8 14.0 Plt Count 257 236 Neut % (Auto) 79.1 H 68.8 Lymph % (Auto) 10.3 L 17.5 L Fountain % (Auto) 10.2 13.3 Eos % (Auto) 0.1 L 0.1 L Baso % (Auto) 0.3 0.3 Neut # (Auto) 9400 H 7900 H Lymph # (Auto) 1200 2000 Fountain # (Auto) 1200 H 1500 H Eos # (Auto) 0 0 Baso # (Auto) 0 0 ESR 55 H PT 18.1 H INR 1.6 H D-Dimer 1496 H Sodium 136 L 137 Potassium 3.4 3.5 Chloride 102 103 Carbon Dioxide 24 23 BUN 15 14 Creatinine 1.24 1.11 Estimated GFR > 60 > 60 BUN/Creatinine Ratio 12.1 12.6 Glucose 107 H 98 Lactate 1.9 Calcium 9.2 8.8 Magnesium 1.7 Total Bilirubin 0.9 AST 40 ALT 40 Alkaline Phosphatase 82 Total Creatine Kinase 382 H Troponin I < 0.012 C-Reactive Protein 16.7 H NT-Pro-B Natriuret Pep < 20 Total Protein 7.6 Albumin 4.2 Globulin 3.4 Albumin/Globulin Ratio 1.2 Lipase 50 Ur Bilirubin Confirm Negative Urine RBC None seen Urine WBC 1-5/hpf Ur Squamous Epith Cells 1-5 /hpf Urine Bacteria None seen Ur Culture Indicated? Specimen cultured U Opiates 300ng/mL cut Negative Ur Oxycodone Screen Negative Urine Methadone Screen Negative Ur Barbiturates Screen Negative U Tricyclic Antidepress Negative Ur Phencyclidine Scrn Negative Ur Amphetamines Screen Positive H U Methamphetamines Scrn Positive H Ur MDMA Scrn (Ecstasy) Negative U Benzodiazepines Scrn Negative Urine Cocaine Screen Negative U Marijuana (THC) Screen Negative SARS-CoV-2 (PCR) Negative Assessment & Plan Assessment & Plan narrative: 1. Acute respiratory distress from pneumonia, POA and improving. -suspect pneumonia is bacterial etiology -Continue ceftriaxone, azithro for 5 days , stop vanco. -follow up cultures -mrsa swab ordered -consider meth induced lung injury if not improving with antibiotics 2. Left leg cellulitis, POA and improved. -imaging shows soft tissue swelling most consistent with antibiotics -shows no further injury -antibiotics as above 3. Meth abuse and dependence, POA. -SW consulted 4. Morbid obesity, POA. BMI 49. Time Spent With Patient Time with patient: 30 to 49 minutes with 50% spent counseling/coordinating care
--- NOTE | 2023-08-31 14:09 | CM.DPC ---
DCP Cont. Reviewed EMR and team rounds for status updates. Pt found to be sleeping at time of this RECTIFYING OPERATOR's visit, appearing comfortable. No d/c date established yet, pt continues to detox from the Meth, expressed having acute pain earlier in the day. Plan: cont. IV ABO's, assess if there are options for OLGA placement that will also accept his additional factors of having DD/TBI.
[2023-08-31] MEDS: ACETAMINOPHEN 325 MG TABLET 650 MG PO ×2 (14:36→21:58)
[2023-08-31] MEDS: AZITHROMYCIN 250 MG TABLET PO (21:50)
[2023-08-31] MEDS: cefTRIAXone 1,000 MG in SODIUM CHLORIDE 0.9% 100 ML 200 MG IV (23:52)
[2023-09-01] VITALS (7 sets, daily range): BP systolic 111–150; BP diastolic 55–68; PULSE 56–76; RESP 18–19; TEMP 35.9–36.9; O2SAT 94–98
[2023-09-01] MEDS: PANTOPRAZOLE DR 20 MG TABLET PO (05:15)
--- NOTE | 2023-09-01 10:01 | PC.NURSE ---
Pt resting at intervals Requesting to be left alone; refusing any meds, Skin presents w/ multiple scabby lesions HL intact/patent. Alowing pt to rest per his request. Call light w/in reach, Bedbalarm on for pt safety.
--- NOTE | 2023-09-01 12:18 | CM.DPNOTE ---
Addendum entered by NEL Tran 09/01/23 16:21: ADD: Spoke with Designated Crisis Response (DCR) Antonio Goncalves P [phone], reviewed this case. Antonio recommends DCR dispatch to thoroughly review and complete a bedside assessment. Next DCR on shift is Stephon Kirby. Faxed record to F [phone] for review. ETA for DCR dispatch is approx 1-2 hours. While awaiting DCR presence, restraint can be attempted as needed, as patient is considered an immediate threat to self and others and is being considered for detainment by [facility]. Updated Dr Thakur and RN coordinator Noa. LEONID Original Note: DCP Note Met w/patient to review DCP, patient says he would like to go to detox or inpatient OLGA treatment and that he has been many times. Explained that detox may be obtainable but that inpatient OLGA treatment would be a lengthier process. Patient immediately became upset and stated multiple times that you're just going to kick me out where I don't know anyone and don't have a ride. Explained that this DIRECTOR STAGE could talk to his mom Molly about transport or hospital can likely arrange a taxi to where he needs to go, including a detox facility if there is one available. Patient became increasingly upset and cannot be consoled. RN Kiley in the room at this point. Patient threatens suicide by saying that once he leaves here he will go kill himself. When asked about plan and method, patient says he will leave here and use his gun to shoot himself. Patient confirms access to gun. Patient admits to prior suicide attempt by intentional overdose on prescription pills. Mom Molly enters the room. Patient calms somewhat and can talk through a plan. This DIRECTOR STAGE expresses concern about patient's comments and we discuss next steps. Suggested attempt at inpatient treatment, ideally dual diagnosis for both MH and OLGA, patient agreeable to this. Patient says he would voluntarily go, mom encouraging patient at bedside. Reviewed above with ER DIRECTOR STAGE Abby. Abby suggests call to DCR to discuss patient as he does not seem a good jose voluntary. Contributing factors for this include patient's hx of TBI and developmental delay, poor insight and poor impulse control. Will plan to discuss w/DCR NEL Fulton
--- NOTE | 2023-09-01 12:37 | P.PN_ITS ---
Subjective Subjective Interval history: He states he still feels poorly and has a fever. He did not sleep all night. He is weak. Exam Vital Signs (past 8 hours): - 09/01/23 05:00 09/01/23 06:00 09/01/23 10:00 Temperature 96.7 F L Pulse Rate 56 L Respiratory Rate 19 Blood Pressure 111/64 Pulse Oximetry 97 97 Oxygen Delivery Method Room Air Room Air Oxygen Flow Rate 0 Fraction of Inspired Oxygen 21 SaO2/FiO2 Ratio 471 Oxygen Delivery Method Room Air Oxygen Flow Rate 0 Narrative Exam Narrative: NAD, somnolent. Minimally interactive. Lungs are clear with scattered rhonchi, normal effort. Heart is regular. No murmur. Abdomen is distended, non-tender. Extremities are free of edema. Objective Labs 08/30/23 05:30 08/31/23 06:30 [facility] Social History Smoking Status: Current every day smoker alcohol intake: current Assessment & Plan Assessment & Plan narrative: 1. Acute respiratory distress from pneumonia, POA and improving. -Continue ceftriaxone, azithro for 5 days , stop vanco. We will continue IV antibiotics. -follow up cultures, negative. -mrsa swab ordered -consider meth induced lung injury if not improving with antibiotics 2. Left leg cellulitis, POA and improved. -imaging shows soft tissue swelling most consistent with antibiotics -shows no further injury -antibiotics as above, will continue. 3. Meth abuse and dependence, POA and stable. -SW consulted 4. Morbid obesity, POA and active. BMI 49. Anticipate discharge within the next 24 hours. He is homeless. Time Spent With Patient Time with patient: 30 to 49 minutes with 50% spent counseling/coordinating care
[2023-09-01] MEDS: BACITRACIN 28 GM OINT 1 APPLIC TOP ×2 (15:16→20:16)
[2023-09-01] MEDS: OLANZapine 2.5 MG TABLET 10 MG PO (19:08)
[2023-09-01] MEDS: HYDROCODONE/ACET 5/325 TABLET 1 TAB PO (19:52)
[2023-09-01] MEDS: IBUPROFEN 600 MG TABLET PO (19:52)
[2023-09-01] MEDS: cloNIDine 0.1 MG TABLET 0.2 MG PO (20:13)
[2023-09-01] MEDS: AZITHROMYCIN 250 MG TABLET PO (20:13)
[2023-09-02] VITALS (7 sets, daily range): BP systolic 108–136; BP diastolic 54–80; PULSE 58–83; RESP 18–19; TEMP 35.6–36.2; O2SAT 94–98
--- NOTE | 2023-09-02 04:53 | PC.NURSE ---
Addendum entered by Cheyenne Bettencourt R.N. 09/02/23 05:49: Patient offered a lorazepam when he started getting aggitated and angry. Patient refused. Original Note: NOC Shift Note- [facility] DCR [facility] Daily has been working on finding a facility for patient. Facility in [facility] accepted patient. reviewed legal paperwork over zoom call between patient and louise Daily at 0350am. Patient became aggitated and angry and stated he [place]? Th[place] to far away. Im not going there. Fuck you. Patient would no longer ingage in conversation, kept repeating Fuck you. Ended zoom call and help patient calm down a bit. Patient still stating he would not go and he will start punching everyone so I can go to senior care and not [facility]. Patient also states he doesnt have any clothes. CORN PICKER and myself have been trying to call mom about clothing and to update with no success, all call going straight to voicemdil. Sent a message to overnight hospitalist Dr. Donald avilesing patient being able to discharge without issue this morning. Dr. Bennett asked that that wait till 7am and have in house hospitalist do discharge and that he couldnt help me. Will request assistance from in house hospitalist at 7am.
--- NOTE | 2023-09-02 07:21 | PM.DS.1 ---
History of Present Illness History of Present Illness Date Patient Seen: 09/02/23 Time Patient Seen: 07:21 Chief complaint: cough/drugs Narrative: Mr. Ferrer is a 23M with [facility] morbidly obese male who has a hx of chronic Bipolar, depression and uses Methamphetamines on a daily bases who is also homeless with a cough and a sinus infection for the past 2 weeks. He states he has a cough of yellow sputum and dsypnea that has been worsening. The pt reports that he has been at 4-5 different drug rehab facilities and in patient psychiatry facilities in the past. He says his ankle pain is quite bad, but he has not had any trauma. He thinks he might be withdrawing from meth as he feels awful. Discharge Providers Provider Date of admission: 08/30/23 00:20 Discharge provider: Hailey Moseley MD Summary Hospital Course Hospital Course: 1. Acute respiratory distress from pneumonia, POA and improving. -Continue ceftriaxone, azithro for 5 days , stop vanco. We will continue IV antibiotics. -follow up cultures, negative. -mrsa swab ordered -consider meth induced lung injury if not improving with antibiotics 2. Left leg cellulitis, POA and improved. -imaging shows soft tissue swelling most consistent with antibiotics -shows no further injury -antibiotics as above, will continue. 3. Meth abuse and dependence, POA and stable. -SW consulted Exam Vital Signs (past 8 hours): - 09/02/23 02:00 09/02/23 06:00 Pulse Oximetry 94 95 Oxygen Delivery Method Room Air Room Air Oxygen Flow Rate 0 0 Fraction of Inspired Oxygen 21 SaO2/FiO2 Ratio 471 Oxygen Delivery Method Room Air Oxygen Flow Rate 0 Objective Labs 08/30/23 05:30 08/31/23 06:30 [facility] Social History Smoking Status: Current every day smoker alcohol intake: current Discharge Plan Discharge orders & Medications Prescriptions: No Action bupropion HCl 150 mg tablet extended release 24 hr 150 mg PO DAILY clonidine HCl 0.1 mg tablet 0.2 mg PO ONCE PM olanzapine 10 mg tablet 10 mg PO BID Visit Report/Discharge Packet Instructions: Pneumonia-Adult
[2023-09-02] MEDS: buPROPion XL 150 MG TAB PO (10:20)
[2023-09-02] MEDS: OLANZapine 2.5 MG TABLET 10 MG PO ×2 (10:21→20:00)
--- NOTE | 2023-09-02 14:59 | PM.PN.1 ---
Subjective Subjective Date Patient Seen: 09/02/23 Interval history: The patient is alert and oriented x3. He is somewhat disengaging and oppositional. He says ?I want to refuse it? when discussing the transfer to the [facility]. He is apparently under DCR supervision. There are no new labs to review. He began discussing a wish to and commit suicide yesterday so was evaluated by court designated psychological professional and was detained. The facility in [place] apparently accepted him but there were delays in obtaining transportation and eventually there was no response from the facility suggesting the transfer would not be successful today. Exam Vital Signs (past 8 hours): - 09/02/23 10:00 09/02/23 10:53 09/02/23 14:00 Temperature 96.1 F L Pulse Rate 83 Respiratory Rate 19 Blood Pressure 136/80 Pulse Oximetry 95 95 Oxygen Delivery Method Room Air Room Air Oxygen Flow Rate 0 Fraction of Inspired Oxygen 21 SaO2/FiO2 Ratio 471 Oxygen Delivery Method Room Air Oxygen Flow Rate 0 Narrative Exam Narrative: The patient is alert and oriented x3. He is somewhat disengaging and oppositional. He says ?I want to refuse it? when discussing the transfer to the [facility]. He is apparently under DCR supervision. There are no new labs to review. Heart is regular rate and rhythm without murmur Lungs are clear to auscultation bilaterally Extremities have no ankle edema. Objective Labs 08/30/23 05:30 08/31/23 06:30 [facility] Medical History (Updated 09/02/23 @ 15:07 by Hailey Moseley MD) Methamphetamine abuse Social History Smoking Status: Current every day smoker alcohol intake: current Assessment & Plan Assessment & Plan narrative: 1. Acute respiratory distress from pneumonia, POA and improving. -Continue ceftriaxone, azithro for 5 days , stop vanco. We will continue IV antibiotics. -follow up cultures, negative. -mrsa swab ordered but no results so far -consider meth induced lung injury 2. Left leg cellulitis, POA and improved. -imaging shows soft tissue swelling most consistent with antibiotics -shows no further injury -antibiotics as above, will continue. 3. Meth abuse and dependence, POA and stable. -SW consulted 4. Suicidal Ideation -DCR evaluation and placement in [place], [place] but problems with transportation and intake staff availability are delaying this transfer.
--- NOTE | 2023-09-02 15:45 | PC.NURSE ---
Pt resting most of the day. Mom here at times wedding planner working on transportation, however, non available at this time. Earliest time is tomorrow @ 1000, however receiving facility unable to hold bed placement. Pt cooperative today Call light w/in reach, pt calls appropriately for needs. Continus w/plan of care.
--- NOTE | 2023-09-02 16:47 | CM.DPC ---
DCP continued: FINAL ASSEMBLER BOAT reviewed EMR. FINAL ASSEMBLER BOAT attempted to find DCR paperwork from previous evening's assessment, not in chart/unable to locate. Verbally, nursing staff reports DCR deemed patient involuntary and set up for patient to go to an inpt facility in [place], [place]. Unsure of name of facility. Barrier is that [facility] cannot do a transportation that far without supervisor composing room approval, who is off on the weekends. FINAL ASSEMBLER BOAT spoke with Maximilian at [facility]. Maximilian confirmed attempting to get managerial approval for transfer at this time. Maximilian reports there is concerns about getting paid for this service as well- need letter of guarantee from [facility]. Maximilian reports due to staffing on their end, likely won't be able to transport until Monday. Unable to schedule transport with [facility] at this time. FINAL ASSEMBLER BOAT spoke with patient and mother at bedside at length. Mother Molly reports frustration that DCR was a zoom assessment not in person and it was in the middle of the night. Mother concerned that due to patient's cognitive disabilities and lack of communication from DCR, patient became agitated and aggressive. Mother reported she was told the facility is [facility] in [facility]. Mother reported other additional frustrations with the process. Mother and patient both report he would d/c voluntarily to inpt MH treatment center. Patient reported being agitated and frustrated that he cannot go outside to get some fresh air. Patient reported he just wants help. FINAL ASSEMBLER BOAT spoke with Codie from [facility]. Tentatively set up transport for 10am tomorrow, that is the absolute earliest they could do. FINAL ASSEMBLER BOAT attempted for the vast majority of the day to get ahold of someone from [facility]. Left countless voicemails at every number/extension available on website. FINAL ASSEMBLER BOAT reached out to DCR in [facility]. Keke connected this FINAL ASSEMBLER BOAT with Antonio Goncalves P [phone]. Reported that paperwrk should have been left at the hospital. Agreed to send briefing and other court information to this code enforcement officer email. Antonio provider direct extension for someone at [facility] ([phone] [email or web address]). Involuntary briefing reports patient will be detained to [facility] in [facility]. Per DCR paperwork, patient is currently under involuntary services due to being gravely disabled. FINAL ASSEMBLER BOAT was able to speak with Mark/intake nurse at [facility] [phone] [id number]. Mark reports they are not able to hold a bed for a Monday transport. FINAL ASSEMBLER BOAT spoke with Antonio again. Antonio recommended that if patient is still here Monday morning to file new request with DCR and that she is on tomorrow and will come do another assessment and attempt to find an INPT MH facility closer. FINAL ASSEMBLER BOAT updated nursing staff. FINAL ASSEMBLER BOAT attempted to update patient, patient appears to be resting peacefully at this time and due to patient's previous agitation with being disturbed in sleep, this FINAL ASSEMBLER BOAT decided to allow patient to sleep. This FINAL ASSEMBLER BOAT notified RN, who will continue with POC. Plan: CM team will place new request for DCR tomorrow, Antonio aware and plans to respond to attempt to find a closer MH/OLGA facility. CM team will continue to follow closely. NEL Choi
[2023-09-02] MEDS: AZITHROMYCIN 250 MG TABLET PO (20:00)
[2023-09-02] MEDS: cloNIDine 0.1 MG TABLET 0.2 MG PO (21:06)
--- NOTE | 2023-09-02 21:40 | PC.NURSE ---
Addendum entered by Elidia Cortes R.N. 09/03/23 07:12: Pt slept through night. Report given to oncoming RN. Pt continues to be high risk 1:1 obs w/ Q15 min charting. Original Note: Shift Risk Assessment: Pt continues to be High Risk, continue 1:1 observation with Q15 min charting.
--- NOTE | 2023-09-03 07:51 | PC.NURSE ---
Addendum entered by Pee Lindsay R.N. 09/03/23 12:33: DRESSMAKER GARMENT FITTER said Pt will be picked up by [facility] by 13:30 for transfer to facility. D/c orders are written and DRESSMAKER GARMENT FITTER will call Pt's mother and inform her. Addendum entered by Pee Lindsay R.N. 09/03/23 11:16: DCR finished speaking with Pt and is now speaking with DRESSMAKER GARMENT FITTER. Pt calm and cooperative although tearful with DCR and with Mom on the phone afterwards. Presently calm and cooperative. Addendum entered by Pee Lindsay R.N. 09/03/23 09:36: awake briefly to have b'fast. Addendum entered by Pee Lindsay R.N. 09/03/23 08:45: Pt continues sleeping soundly. Original Note: Pt presently sleeping soundly. RN continues at bedside.
[2023-09-03] MEDS: buPROPion XL 150 MG TAB PO (09:37)
[2023-09-03] MEDS: OLANZapine 2.5 MG TABLET 10 MG PO (09:37)
[2023-09-03 10:00] VITALS: O2SAT 98
--- NOTE | 2023-09-03 10:13 | PC.NURSE ---
DCR arrived @1005. DCR in the room talking with patient. Pt. mother is on speaker phone per pt. request. CM-aware. Patient is getting upset and appears to be crying. Pt stating I don't want to go. Patient expresses that he would to not be detained. DCR and pt's mother are reassuring pt. Pt. appears calm. Will continue to monitor 1:1. RN and CM notified.
[2023-09-03 11:03] VITALS: BP 95/41; PULSE 60; RESP 16; TEMP 36.3; O2SAT 98
[2023-09-03 11:28] LABS: Add Manual Diff / Slide Review YES; Hematocrit 41.6 % (41-53); Hemoglobin 14.4 g/dL (13.5-17.5); Mean Corpuscular HGB Conc 34.5 % (30-36); Mean Corpuscular Hemoglobin 29.3 PG (26-34); Platelet Count 395 X10^3/uL (150-400); Red Blood Cell Count 4.89 X10^6/uL (4.5-5.9); Red Cell Distribution Width 14.1 % (11.6-14.8); White Blood Cell Count 10.8 X10^3/uL (4.5-11.0)
[2023-09-03 11:34] LABS: BUN Creatinine Ratio 24.7 (6-22); Blood Urea Nitrogen 21 mg/dL (9-20); Calcium 10.4 mg/dL (8.4-10.2); Carbon Dioxide 27 mmol/L (22-32); Chloride 105 mmol/L (98-107); Estimated Glomerular Filt Rate > 60 mL/min (>60); Glucose 99 mg/dL (70-100); HEMOLYSIS < 15 (0-50); Potassium 4.2 mmol/L (3.4-5.1); Sodium 140 mmol/L (137-145)
[2023-09-03 11:49] LABS: Neutrophils Absolute Manual 5184 /uL (3000-5900); Total Cells Counted 100
[2023-09-03 11:50] LABS: RBC Morphology Normal Morphology
--- NOTE | 2023-09-03 12:31 | PM.DS.1 ---
History of Present Illness History of Present Illness Date Patient Seen: 08/30/23 Time Patient Seen: 08:00 Chief complaint: cough/drugs Narrative: Mr. Ferrer is a 23M with [facility] morbidly obese male who has a hx of chronic Bipolar, depression and uses Methamphetamines on a daily bases who is also homeless with a cough and a sinus infection for the past 2 weeks. He states he has a cough of yellow sputum and dsypnea that has been worsening. The pt reports that he has been at 4-5 different drug rehab facilities and in patient psychiatry facilities in the past. He says his ankle pain is quite bad, but he has not had any trauma. He thinks he might be withdrawing from meth as he feels awful. Discharge Providers Provider Date of admission: 08/30/23 00:20 Discharge Date: 09/03/23 Discharge provider: Logan Galicia DO Summary Hospital Course Discharge Diagnosis: 1. Acute respiratory distress from pneumonia, POA and resolved. -Finished ceftriaxone, azithro for 5 days -follow up cultures, negative. -mrsa swab ordered but no results so far -consider meth induced lung injury 2. Left leg cellulitis, POA and improved. -imaging shows soft tissue swelling most consistent with antibiotics -shows no further injury -will finish 3 more days of keflex on discharge 3. Meth abuse and dependence, POA and stable. -SW consulted 4. Suicidal Ideation -DCR evaluation and placement in [place], [place] at [facility]. Accepting ARNAUD Alatorre. Hospital Course: Admitted for SI and PNA. Finished 5 days of IV abx for PNA. Meth positive on Utox. DCR determined he required detaining against his will, so he was transferred to acute [facility] in [facility]. Will finish a few more days of po abx for his cellulitis there. Exam Vital Signs (past 8 hours): - 09/03/23 10:00 09/03/23 11:03 Temperature 97.3 F L Pulse Rate 60 Respiratory Rate 16 Blood Pressure 95/41 L Pulse Oximetry 98 98 Oxygen Delivery Method Room Air Fraction of Inspired Oxygen 21 SaO2/FiO2 Ratio 471 Oxygen Delivery Method Room Air Oxygen Flow Rate 0 Narrative Exam Narrative: The patient is alert and oriented x3. Heart is regular rate and rhythm without murmur Lungs are clear to auscultation bilaterally Extremities have no ankle edema. Objective Labs 09/03/23 11:20 09/03/23 11:20 Labs: Laboratory Results - last 24 hr 09/03/23 11:20 WBC 10.8 RBC 4.89 Hgb 14.4 Hct 41.6 MCV 85.0 MCH 29.3 MCHC 34.5 RDW 14.1 Plt Count 395 Neut % (Auto) Not Reportable Lymph % (Auto) Not Reportable Carlisle % (Auto) Not Reportable Eos % (Auto) Not Reportable Baso % (Auto) Not Reportable Lymph # (Auto) Not Reportable Carlisle # (Auto) Not Reportable Baso # (Auto) Not Reportable Total Counted 100 Seg Neutrophils % 47.0 Band Neutrophils % 1.0 L Lymphocytes % (Manual) 41.0 Monocytes % (Manual) 8.0 Eosinophils % (Manual) 1.0 L Basophils % (Manual) 1.0 Metamyelocytes % 1.0 H Neutrophils # (Manual) 5184 RBC Morphology Normal morphology Sodium 140 Potassium 4.2 Chloride 105 Carbon Dioxide 27 BUN 21 H Creatinine 0.85 Estimated GFR > 60 BUN/Creatinine Ratio 24.7 H Glucose 99 Calcium 10.4 H [facility] Medical History (Updated 09/02/23 @ 15:07 by Hailey Moseley MD) Methamphetamine abuse Social History Smoking Status: Current every day smoker alcohol intake: current Discharge Plan Discharge Plan Patient Disposition: [facility] Other facility: [place], [place] Discharge orders & Medications Prescriptions: New pantoprazole [Protonix] 20 mg tablet,delayed release (DR/EC) 20 mg PO DAILY Qty: 30 0RF Rx Instructions: before breakfast cephalexin 500 mg capsule 500 mg PO QID 3 Days Qty: 12 0RF Continued clonidine HCl 0.1 mg tablet 0.2 mg PO ONCE PM Qty: 30 0RF olanzapine 10 mg tablet 10 mg PO BID Qty: 60 0RF bupropion HCl 150 mg tablet extended release 24 hr 150 mg PO DAILY Qty: 30 0RF Diet/Activity/Treatments Diet: Diet as Tolerated Liquid consistency: Normal/Thin Food texture: Regular Visit Report/Discharge Packet Instructions: Pneumonia-Adult Stand Alone Forms: Patient Portal/API, Stroke Signs & Symptoms
[2023-09-03] MEDS: cephALEXin 250 MG CAPSULE 500 MG PO (12:51)
--- NOTE | 2023-09-03 13:52 | PC.NURSE ---
1340 pt's mother Molly at bedside talking to pt as transport team is here to facilitate move to facility in [place]. Pt's knife signed out from safe and taken by pt's mom. Pt is calm without signs/symptoms of distress
--- NOTE | 2023-09-03 14:12 | CM.DPC ---
DCP Continued: TANK CREWMEMBER reviewed EMR. TANK CREWMEMBER spoke with Keke at DCR crisis line. Informed her of previous day's plan with Antonio for Antonio to come to the hospital to redo DCR assessment for involuntary detainment. Antonio called this TANK CREWMEMBER. On way to assist in finding accepting facility/to conduct an in person assessment. TANK CREWMEMBER spoke with Radha SCOTT at [facility] (p [phone] ext [phone] and f [phone]) often throughout the day. Radha reports they have bed availability at this time but would need new/updated detainment paperwork/labs/med list. Confirmed [address] as [facility] [address] [facility] [address] in [facility]. TANK CREWMEMBER spoke with provider in rounds. Agreed to re order labs to assist in placement process. Provider agreed patient is medically cleared to d/c at this time and would benefit from OLGA treatment. From RN, patient has been taking behavioral health meds and oral antibiotics voluntarily. Antonio Goncalves arrived to do new DCR assessment. DCR decided to re-detain due to being gravely disabled, substance abuse, and suicidal ideation/intent. Searching for dual diagnosis facility of substance use and mental health treatment. Closest/soonest accepting facility remains [facility]. Antonio Goncalves remained at [facility] in order to expedite the completion of her updated detainment paperwork. Antonio, this TANK CREWMEMBER, provider, and nursing team collaborated together to complete necessary DCR paperwork. DCR paperwork was emailed to this TANK CREWMEMBER, printed out, and made copies of. YURIY Alvarez served patient a copy, one copy for their records, and this TANK CREWMEMBER placed one copy for our records in scanning folder to scan into patient's chart. TANK CREWMEMBER spoke with dispatch at [facility]. Confirms can transport today at 1330. TANK CREWMEMBER faxed Med list, copy of hard scripts, updated labs, d/c summary, and copy of court DCR paperwork to [facility]. Radha SCOTT reports no other documents needed at this time. TANK CREWMEMBER gave hard scripts, signed med list, DCR ambulance form, and copy of d/c summary to [facility] that was putting together a d/c packet for patient. From Radha SCOTT, [facility] accept. TANK CREWMEMBER spoke with mom via phone to inform her on upcoming transfer. mom reported to be on her way and reported would arrive right around scheduled transport time. TANK CREWMEMBER answered questions to best of ability. TANK CREWMEMBER spoke with patient. Patient agreed to sign transfer documentation. Patient in agreement with transfer however he wanted this mother here before he left. TANK CREWMEMBER completed necessary transport paperwork with assistance/support from JEWEL HOLE ROUGH OPENER and provider. TANK CREWMEMBER gave completed transfer documentation to [facility] ambulance team. Per residential treatment staff, patient left with ambulance team after mother's arrival. TANK CREWMEMBER, DCR, nursing staff, provider, [facility], and nursing staff at [facility] collaborated and communicated closely with each other throughout the day to best manage a safe d/c. Plan: patient to d/c to [facility] at 1330 via ambulance due to involuntary detainment with [facility] ambulance. CM team will continue to follow as needed. NEL Choi
== END 2023-09-03 13:58 | DRG 194 ==
LOC: ED 08-30 00:12 → AC 08-30 00:21
PROVIDERS: Student in an Organized Health Care Education/Training Program; Admitting Provider Internal Medicine; Emergency Provider Emergency Medicine; Referring Provider Emergency Medicine; Visit Provider Internal Medicine
DX: J18.9 Pneumonia, unspecified organism (principal); F15.20 Other stimulant dependence, uncomplicated; Z68.42 Body mass index [BMI] 45.0-49.9, adult; L03.116 Cellulitis of left lower limb; R45.851 Suicidal ideations; E66.01 Morbid (severe) obesity due to excess calories; F17.210 Nicotine dependence, cigarettes, uncomplicated; R06.03 Acute respiratory distress; F31.9 Bipolar disorder, unspecified
CPT/HCPCS: 36415; 71045; 71275; 73610; 73700; 80048; 80053; 80305; 81003; 81015; 82550; 83605; 83690; 83735; 83880; 84484; 85007; 85025; 85379; 85610; 85651; 86140; 87086; 87635; 87797; 93005; 93010; 93971; 96365; 99284; 99285; C9803; J0696; J1650; Q9967